=== PATIENT | male | born 1955 | race Caucasian/White ===

== ENCOUNTER 2017-01-19 11:23 | Emergency (ER) | payer OTHER ==
[~2017-01-19] VITALS: Ht 182.9 cm; Wt 94.9 kg
[~2017-01-19 11:23] MED LIST: NAUSEA MEDICATION PO
[2017-01-19 17:31] VITALS: BP 145/92
== END 2017-01-19 17:35 | disposition home or self-care (01) ==
LOC: ED 17:27
DX: G89.29 Other chronic pain (principal); M25.512 Pain in left shoulder
CPT/HCPCS: 71020; 72050; 93005